=== PATIENT | male | born 2000 | race Two or more races ===

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

== ENCOUNTER 2023-09-24 09:32 | Emergency (ER) | payer MEDICAID, OTHER ==
[~2023-09-24] VITALS: Ht 185.4 cm; Wt 90.2 kg
[2023-09-24 10:15] VITALS: BP 132/61; PULSE 88; RESP 18; TEMP 98.1; O2SAT 96
[2023-09-24] MEDS: KETOROLAC TROMETH 60MG/2ML VIAL IM ONE (10:56)
[2023-09-24] MEDS ORDERED: IBUP1TAB5 PO (11:20)
[2023-09-24] MEDS ORDERED: METH-1181 PO (11:20)
== END 2023-09-24 11:31 | disposition home or self-care (01) ==
LOC: ER 09:32
DX: S39.012A Strain of muscle, fascia and tendon of lower back, initial encounter (principal); W01.0XXA Fall on same level from slipping, tripping and stumbling without subsequent striking against object, initial encounter; Y93.89 Activity, other specified; Y92.89 Other specified places as the place of occurrence of the external cause; Y99.0 Civilian activity done for income or pay
CPT/HCPCS: 72100; 96372; 99283; J1885